=== PATIENT | female | born 1940 | race African-American/Black ===

== ENCOUNTER → 2017-02-09 | Outpatient (CLI) | payer MEDICARE, OTHER ==
[~2017-02-09] MED LIST: METF500T4 PO
[2017-02-09 12:27] LABS: HEMOGLOBIN A1C 6.3 % (4.5-6.2)
[2017-02-09 12:34] LABS: APPEARANCE,URINE CLEAR (CLEAR); GLUCOSE, URINE (UA) NEGATIVE (NEGATIVE); KETONES,URINE NEGATIVE (NEGATIVE); LEUKOCYTE ESTERASE ,URINE NEGATIVE (NEGATIVE); OCCULT BLOOD,URINE NEGATIVE (NEGATIVE); PROTEIN,URINE NEGATIVE (NEGATIVE)
[2017-02-09 12:36] LABS: ADD UA MICROSCOPIC NO; BASOPHILS # (AUTO) 0.03 K/uL (0.00-0.20); BASOPHILS % (AUTO) 0.3 % (0.0-2.0); EOSINOPHILS % (AUTO) 2.03 % (1.0-6.0); HEMATOCRIT 42.4 % (36-46); HEMOGLOBIN 13.5 g/dL (12.0-16.0); LYMPHOCYTES # (AUTO) 3.8 K/uL (1.0-4.8); LYMPHOCYTES % (AUTO) 38.4 % (22.0-44.0); MEAN CORPUSCULAR HEMOGLOBIN 29.2 pg (26.0-34.0); MEAN CORPUSCULAR HGB CONC 31.8 G/dL (31.0-37.0); MEAN CORPUSCULAR VOLUME 92 fL (80-100); MONOCYTES # (AUTO) 0.5 K/uL (0.1-1.0); MONOCYTES % (AUTO) 5.2 % (2.0-9.0); NEUTROPHILS # (AUTO) 5.3 K/uL (1.8-7.7); NEUTROPHILS % (AUTO) 54.1 % (40.0-70.0); PLATELET COUNT (AUTO) 353 K/uL (150-450); RED BLOOD CELL COUNT(AUTO) 4.61 MIL/uL (4.00-5.20); WHITE BLOOD COUNT (AUTO) 9.8 K/uL (4.5-11.0)
[2017-02-09 12:48] LABS: ALANINE AMINOTRANSFERASE 25 U/L (12-78); ALBUMIN 3.3 g/dL (3.4-5.0); ANION GAP 10 mmol/L (8-16); ASPARTATE AMINOTRANSFERASE 16 U/L (15-37); BILIRUBIN,TOTAL 0.4 mg/dL (0.1-1.0); CALCIUM, TOTAL 8.3 mg/dL (8.8-10.5); CARBON DIOXIDE 27 mmol/L (22-29); CHLORIDE 109 mmol/L (98-107); CHOL/HDL RATIO 4.3 (3.9-5.7); CREATININE 0.55 mg/dL (0.60-1.30); GLOMERULAR FILTR. RATE CALC > 60 mL/min (>60); POTASSIUM 3.7 mmol/L (3.5-5.1); SODIUM SERUM 146 mmol/L (136-145); TOTAL PROTEIN, SERUM 7.4 g/dL (6.4-8.2); UREA NITROGEN, BLOOD 9 mg/dL (7-18)
[2017-02-10 21:31] LABS: CREATININE, URINE (mALB) 104.9 mg/dL (Not Estab.)
== END | disposition home or self-care (01) ==
LOC: MSR 10:20
PROVIDERS: ATTEND Specialist
DX: J98.11 Atelectasis (principal); I70.0 Atherosclerosis of aorta; E78.00 Pure hypercholesterolemia, unspecified; E11.9 Type 2 diabetes mellitus without complications
CPT/HCPCS: 71020; 82043; 82570; 83036

== ENCOUNTER 2024-09-24 09:57 | Emergency (ER) | payer MEDICARE, OTHER ==
[~2024-09-24] VITALS: Ht 157.5 cm; Wt 70.5 kg
[~2024-09-24 09:57] MED LIST changes: +METF-1211 PO; -METF500T4 PO
[2024-09-24] MEDS ORDERED: AMLO2.5T29 PO (10:16)
[2024-09-24] MEDS ORDERED: METF-1211 PO (10:16)
[2024-09-24 10:17] VITALS: TEMP 98
[2024-09-24] MEDS: ACETAMINOPHEN 325 MG TABLET PO ONE (12:58)
[2024-09-24] MEDS: KETOROLAC TROMETHAMINE 30 MG/ML VIAL IM ONE (12:59)
[2024-09-24 15:27] VITALS: BP 115/53; PULSE 65; RESP 15; O2SAT 98
== END 2024-09-24 16:44 | disposition home or self-care (01) ==
LOC: EMS 10:04
DX: M25.512 Pain in left shoulder (principal); E11.9 Type 2 diabetes mellitus without complications; Z79.84 Long term (current) use of oral hypoglycemic drugs
CPT/HCPCS: 99283; 73030; 82962; 96372; J1885